=== PATIENT | male | born 1940 | race Caucasian/White ===

== ENCOUNTER 2023-05-03 00:48 | Emergency (ER) | payer MEDICARE, OTHER ==
[~2023-05-03] VITALS: Ht 157.5 cm; Wt 63.5 kg
[~2023-05-03 00:48] MED LIST: BUPR75TA8 PO; CLOP75TA15 PO; DIVA500T54 PO; DUTA0.5C PO; HYDR-4076 PO; ROPI2TAB7 PO; ROSU10TA2 PO; TAMS0.4C34 PO
[2023-05-03 03:51] VITALS: BP 121/63; TEMP 98.2; O2SAT 99
== END 2023-05-03 03:51 | disposition home or self-care (01) ==
LOC: ER 00:52
DX: S80.11XA Contusion of right lower leg, initial encounter (principal); I10 Essential (primary) hypertension; F32.A Depression, unspecified; Z98.890 Other specified postprocedural states; Z79.899 Other long term (current) drug therapy; W22.8XXA Striking against or struck by other objects, initial encounter; Y93.89 Activity, other specified; Y92.89 Other specified places as the place of occurrence of the external cause; Y99.8 Other external cause status

== ENCOUNTER 2024-07-29 13:33 | Inpatient (IN) | payer MEDICARE, OTHER ==
[~2024-07-29] VITALS: Ht 167.6 cm; Wt 64.0 kg
[2024-07-29] MEDS: IV NS 0.9% 1,000 ML BAG IV ONE (15:00)
[2024-07-29 15:03] LABS: BASOPHILS # (AUTO) 0.1 K/uL (0.0-0.2); BASOPHILS % (AUTO) 0.9 % (0.0-2.0); EOSINOPHILS % (AUTO) 0.4 % (0.0-6.0); HEMATOCRIT 42 % (39-51); HEMOGLOBIN 13.9 g/dL (13.5-17.5); LYMPHOCYTES # (AUTO) 1.7 K/uL (0.8-4.8); LYMPHOCYTES % (AUTO) 21.2 % (20.0-44.0); MEAN CORPUSCULAR HEMOGLOBIN 31 PG (26.0-33.0); MEAN CORPUSCULAR HGB CONC 33 g/dl (31.0-36.0); MEAN CORPUSCULAR VOLUME 92 fL (80-96); MONOCYTES # (AUTO) 0.7 K/uL (0.1-1.30); MONOCYTES % (AUTO) 8.8 % (2.0-12.0); NEUTROPHILS # (AUTO) 5.6 K/uL (1.8-8.9); NEUTROPHILS % (AUTO) 68.7 % (43.0-81.0); PLATELET COUNT (AUTO) 217 K/uL (150-450); RED BLOOD CELL COUNT(AUTO) 4.53 MIL/uL (4.5-6.0); RED CELL DISTRIBUTION WIDTH 15.8 % (11.5-15.0); WHITE BLOOD COUNT (AUTO) 8.1 K/uL (4.3-11.0)
[2024-07-29 15:09] LABS: CALCIUM, SERUM 9.2 mg/dL (8.5-10.1); CARBON DIOXIDE 23 mmol/L (21-32); CHLORIDE 103 mmol/L (98-107); CREATININE 3.2 mg/dL (0.6-1.3); GLUCOSE 128 mg/dL (74-106); POTASSIUM 4.4 mmol/L (3.5-5.1); SODIUM SERUM 139 mmol/L (136-145); UREA NITROGEN, BLOOD 58 mg/dL (7-18)
[2024-07-29 15:15] LABS: ALANINE AMINOTRANSFERASE 47 U/L (12-78); ALKALINE PHOSPHATASE 159 U/L (46-116); ASPARTATE AMINOTRANSFERASE 33 U/L (15-37); BILIRUBIN,DIRECT 0.2 mg/dL (0.0-0.2); BILIRUBIN,TOTAL 0.5 mg/dL (0.2-1.0)
[2024-07-29 15:16] LABS: INR 1.09 (0.91-1.10); PROTHROMBIN TIME 11.5 SECS (9.2-11.1)
[2024-07-29 15:41] LABS: THYROID STIMULATING HORMONE 1.99 uIU/mL (0.358-3.74)
[2024-07-29] MEDS ORDERED: ATROPINE SULFATE INJ 1 MG/ML VIAL ONE (16:05)
[2024-07-29] MEDS: ATROPINE SULFATE INJ 1 MG/ML VIAL IV ONE (16:08)
[2024-07-29] MEDS ORDERED: ONDANSETRON HCL/PF 4 MG/2 ML VIAL IVP PRN (18:00)
[2024-07-29] MEDS ORDERED: ATROPINE SULFATE INJ 0.4 MG/ML VIAL IV PRN (18:00)
[2024-07-29] MEDS ORDERED: MAGNESIUM HYDROXIDE 30 ML UDC PO PRN (18:00)
[2024-07-29] MEDS ORDERED: ACETAMINOPHEN 325 MG TABLET PO PRN (18:00)
[2024-07-29] MEDS ORDERED: HYDROCODONE/APAP 5/325MG TABLET PO PRN (18:00)
[2024-07-29] MEDS ORDERED: Z GUARD REMEDY 4 OZ OINT TP PRN (18:00)
[2024-07-29] MEDS ORDERED: ZOLPIDEM TARTRATE 5 MG TABLET PO PRN (18:00)
[2024-07-29] MEDS ORDERED: MAG HYDROX/AL HYDROX/SIMETH 30 ML UDC PO PRN (18:00)
[2024-07-29] MEDS ORDERED: ATROPINE SULFATE INJ 1 MG/ML VIAL IV PRN (20:30)
[2024-07-29 21:23] LABS: APPEARANCE,URINE CLEAR (CLEAR); BILIRUBIN,URINE NEGATIVE (NEGATIVE); BLOOD, URINE NEGATIVE Ery/uL (NEGATIVE); COLOR,URINE YELLOW (YELLOW); KETONES,URINE NEGATIVE (NEGATIVE); LEUKOCYTE ESTERASE ,URINE NEGATIVE (NEGATIVE); NITRITE, URINE NEGATIVE (NEGATIVE); PH,URINE 5.5 (5.0-8.0); PROTEIN,URINE 2+ mg/dl (NEGATIVE); UGLUCOSE NEGATIVE (NEGATIVE)
[2024-07-29 22:16] LABS: ADD URINE CULTURE NO; BACTERIA,URINE Rare /HPF (None Seen); CALCIUM OXALATE CRYSTALS,UR Few /HPF (None Seen); HYALINE CASTS, URINE Few /LPF (None Seen); RBC,URINE 0-2 /HPF (0-2); SQUAMOUS EPITHELIAL CELL,UR Rare /HPF (None Seen); WBC,URINE 0-2 /HPF (0-3)
[2024-07-29] MEDS: IV NS 0.9% 1,000 ML IV PRN (23:48)
[2024-07-30 08:17] LABS: BASOPHILS # (AUTO) 0.1 K/uL (0.0-0.2); BASOPHILS % (AUTO) 0.7 % (0.0-2.0); EOSINOPHILS # (AUTO) 0.1 K/uL (0.0-0.7); EOSINOPHILS % (AUTO) 1.3 % (0.0-6.0); HEMATOCRIT 38 % (39-51); HEMOGLOBIN 12.6 g/dL (13.5-17.5); LYMPHOCYTES # (AUTO) 1.7 K/uL (0.8-4.8); LYMPHOCYTES % (AUTO) 22.9 % (20.0-44.0); MEAN CORPUSCULAR HEMOGLOBIN 31 PG (26.0-33.0); MEAN CORPUSCULAR HGB CONC 33 g/dl (31.0-36.0); MEAN CORPUSCULAR VOLUME 94 fL (80-96); MONOCYTES # (AUTO) 0.7 K/uL (0.1-1.30); MONOCYTES % (AUTO) 9.6 % (2.0-12.0); NEUTROPHILS % (AUTO) 65.5 % (43.0-81.0); PLATELET COUNT (AUTO) 183 K/uL (150-450); RED BLOOD CELL COUNT(AUTO) 4.08 MIL/uL (4.5-6.0); RED CELL DISTRIBUTION WIDTH 16.5 % (11.5-15.0); WHITE BLOOD COUNT (AUTO) 7.6 K/uL (4.3-11.0)
[2024-07-30] MEDS: PANTOPRAZOLE 40 MG TABLET.DR PO SCH (08:34)
[2024-07-30] MEDS: hydrALAZINE HCL 50 MG TABLET PO SCH (08:52)
[2024-07-30 10:10] LABS: CALCIUM, SERUM 8.8 mg/dL (8.5-10.1); CREATININE 2.8 mg/dL (0.6-1.3); MAGNESIUM 2.4 mg/dL (1.8-2.4); PHOSPHORUS 4.8 mg/dL (2.5-4.9); POTASSIUM 4.6 mmol/L (3.5-5.1)
[2024-07-30] MEDS ORDERED: CALC0.253 PO (10:42)
[2024-07-30] MEDS ORDERED: CICLOPIROX TP (10:42)
[2024-07-30] MEDS ORDERED: DAPA5TAB PO (10:42)
[2024-07-30] MEDS ORDERED: FLUT16SP NS (10:42)
[2024-07-30] MEDS ORDERED: GABA100C PO (10:42)
[2024-07-30] MEDS ORDERED: ECON15CR2 TP (10:42)
[2024-07-30] MEDS ORDERED: AMLO1TAB PO (10:42)
[2024-07-30] MEDS ORDERED: TAVA10SO2 TP (10:42)
[2024-07-30] MEDS ORDERED: HYDR100T27 PO ×2 (10:42)
[2024-07-30] MEDS ORDERED: CLON1PAT2 TD (10:42)
[2024-07-30] MEDS ORDERED: CARB1TAB21 PO (10:42)
[2024-07-30] MEDS ORDERED: TEST2.5G10 TP (10:42)
[2024-07-30] MEDS ORDERED: ATEN100T PO (10:42)
[2024-07-30] MEDS ORDERED: TIMO5DRO31 EACHEYE (10:42)
[2024-07-30] MEDS ORDERED: SUCR1TAB PO (10:42)
[2024-07-30] MEDS ORDERED: BUSP5TAB3 PO (10:42)
[2024-07-30] MEDS ORDERED: BUPR200T3 PO (10:42)
[2024-07-30] MEDS ORDERED: TADA5TAB13 PO (10:42)
[2024-07-30] MEDS ORDERED: ASPI-1169 PO (10:42)
[2024-07-30] MEDS ORDERED: MEMA21CA2 PO (10:43)
[2024-07-30] MEDS ORDERED: LOSA25TA27 PO (10:43)
[2024-07-30] MEDS ORDERED: DONE5TAB34 PO (10:43)
[2024-07-30] MEDS ORDERED: DUTA0.5C37 PO (10:43)
[2024-07-30] MEDS ORDERED: MIRT-91 PO (10:43)
[2024-07-30] MEDS ORDERED: AZEL137S7 NS (10:43)
[2024-07-30] MEDS ORDERED: MOME45CR3 TP (10:43)
[2024-07-30] MEDS ORDERED: APIX2.5T PO (10:43)
[2024-07-30] MEDS ORDERED: TAMS-12 PO (10:43)
[2024-07-30] MEDS ORDERED: FURO-145 PO (10:43)
[2024-07-30] MEDS ORDERED: FEBU40TA PO (10:43)
[2024-07-30] MEDS ORDERED: LEVO112T5 PO (10:43)
[2024-07-30] MEDS ORDERED: ESZO1TAB13 PO (10:43)
[2024-07-30] MEDS ORDERED: POLY17PO4 PO (10:43)
[2024-07-30] MEDS ORDERED: CYAN-51 PO (10:43)
[2024-07-30] MEDS ORDERED: FOLI0.4T6 PO (10:43)
[2024-07-30] MEDS ORDERED: FEXO-65 PO (10:43)
[2024-07-30] MEDS ORDERED: ROSU20TA2 PO (10:43)
[2024-07-30] MEDS ORDERED: ESOM40CA52 PO (10:43)
[2024-07-30] MEDS ORDERED: EZET10TA15 PO (10:43)
[2024-07-30] MEDS ORDERED: CALC500T53 PO (10:43)
[2024-07-30] MEDS ORDERED: DICL100G34 TP (10:43)
[2024-07-30] MEDS ORDERED: BIMA2.5D5 EACHEYE (10:43)
[2024-07-30] MEDS ORDERED: SODI650T PO (10:43)
[2024-07-30] MEDS ORDERED: FERR325T23 PO (10:43)
[2024-07-30 20:00] VITALS: BP 161/94; TEMP 98.2; O2SAT 98
[2024-07-31] VITALS: BP 141/65; TEMP 98.1; O2SAT 97
[2024-07-31 04:00] VITALS: BP 149/67; TEMP 98.3; O2SAT 98
[2024-07-31 08:00] VITALS: BP 162/84; TEMP 98.3; O2SAT 98
[2024-07-31 08:25] LABS: BASOPHILS # (AUTO) 0.1 K/uL (0.0-0.2); BASOPHILS % (AUTO) 0.8 % (0.0-2.0); EOSINOPHILS # (AUTO) 0.1 K/uL (0.0-0.7); EOSINOPHILS % (AUTO) 1.3 % (0.0-6.0); HEMATOCRIT 40 % (39-51); HEMOGLOBIN 13.1 g/dL (13.5-17.5); LYMPHOCYTES # (AUTO) 2.1 K/uL (0.8-4.8); LYMPHOCYTES % (AUTO) 23.8 % (20.0-44.0); MEAN CORPUSCULAR HEMOGLOBIN 30 PG (26.0-33.0); MEAN CORPUSCULAR HGB CONC 33 g/dl (31.0-36.0); MEAN CORPUSCULAR VOLUME 93 fL (80-96); MONOCYTES # (AUTO) 0.9 K/uL (0.1-1.30); MONOCYTES % (AUTO) 10.4 % (2.0-12.0); NEUTROPHILS # (AUTO) 5.7 K/uL (1.8-8.9); NEUTROPHILS % (AUTO) 63.7 % (43.0-81.0); PLATELET COUNT (AUTO) 165 K/uL (150-450); WHITE BLOOD COUNT (AUTO) 8.9 K/uL (4.3-11.0)
[2024-07-31] MEDS: hydrALAZINE HCL 50 MG TABLET PO SCH (08:29)
[2024-07-31 12:00] VITALS: BP 171/78; TEMP 97.9; O2SAT 96
[2024-07-31 12:30] LABS: ALBUMIN 3.6 g/dL (3.4-5.0); BILIRUBIN,TOTAL 0.5 mg/dL (0.2-1.0); CALCIUM, SERUM 9.3 mg/dL (8.5-10.1); CREATININE 2.6 mg/dL (0.6-1.3); MAGNESIUM 2.2 mg/dL (1.8-2.4); POTASSIUM 4.2 mmol/L (3.5-5.1); TOTAL PROTEIN, SERUM 6.5 g/dL (6.4-8.2)
[2024-07-31] MEDS: ISOSORBIDE DINITRATE (10MG) 10 MG TABLET PO SCH (13:00)
[2024-07-31 16:00] VITALS: BP 141/70; TEMP 98; O2SAT 96
[2024-07-31 20:00] VITALS: BP 108/67; TEMP 98.6; O2SAT 97
[2024-08-01] VITALS: BP 101/56; TEMP 98.4; O2SAT 95
[2024-08-01 04:00] VITALS: BP 121/57; TEMP 97.8; O2SAT 96
[2024-08-01 07:06] LABS: PTH, INTACT 52 pg/mL (15-65)
[2024-08-01 08:00] VITALS: BP 145/74; TEMP 98.2; O2SAT 96
[2024-08-01 12:00] VITALS: BP 102/54; TEMP 98.1; O2SAT 95
[2024-08-01 16:00] VITALS: BP 115/81; TEMP 98.2; O2SAT 95
[2024-08-01] MEDS: BISACODYL (5 MG) 5 MG TABLET.DR PO ONE (17:56)
[2024-08-01 20:00] VITALS: BP 99/50; TEMP 98.4; O2SAT 96
[2024-08-01] MEDS: BISACODYL (5 MG) 5 MG TABLET.DR PO PRN (21:52)
[2024-08-02] VITALS (8 sets, daily range): BP systolic 100–151; BP diastolic 55–72; TEMP 97.7–98.6; O2SAT 96–98
[2024-08-02 07:43] LABS: BASOPHILS % (AUTO) 0.6 % (0.0-2.0); EOSINOPHILS # (AUTO) 0.1 K/uL (0.0-0.7); EOSINOPHILS % (AUTO) 1.3 % (0.0-6.0); HEMATOCRIT 36 % (39-51); HEMOGLOBIN 11.9 g/dL (13.5-17.5); LYMPHOCYTES % (AUTO) 23.4 % (20.0-44.0); MEAN CORPUSCULAR HEMOGLOBIN 30 PG (26.0-33.0); MEAN CORPUSCULAR HGB CONC 33 g/dl (31.0-36.0); MEAN CORPUSCULAR VOLUME 92 fL (80-96); MONOCYTES % (AUTO) 11.9 % (2.0-12.0); NEUTROPHILS # (AUTO) 5.5 K/uL (1.8-8.9); NEUTROPHILS % (AUTO) 62.8 % (43.0-81.0); PLATELET COUNT (AUTO) 156 K/uL (150-450); RED BLOOD CELL COUNT(AUTO) 3.92 MIL/uL (4.5-6.0); RED CELL DISTRIBUTION WIDTH 16.4 % (11.5-15.0); WHITE BLOOD COUNT (AUTO) 8.7 K/uL (4.3-11.0)
[2024-08-02 07:45] LABS: ALBUMIN 3.3 g/dL (3.4-5.0); BILIRUBIN,TOTAL 0.5 mg/dL (0.2-1.0); CALCIUM, SERUM 8.8 mg/dL (8.5-10.1); CREATININE 3.2 mg/dL (0.6-1.3); MAGNESIUM 2.5 mg/dL (1.8-2.4); PHOSPHORUS 4.3 mg/dL (2.5-4.9); POTASSIUM 4.7 mmol/L (3.5-5.1)
[2024-08-02] MEDS: IV NS 0.9% 1,000 ML IV PRN (08:53)
[2024-08-02] MEDS: NIFEdipine XL (30MG) 30 MG TAB PO SCH (12:37)
[2024-08-02] MEDS: LACTULOSE 10 G/15 ML UDC (PYXIS) PO SCH (12:53)
[2024-08-03] VITALS: BP 111/63; TEMP 98.4; O2SAT 97
[2024-08-03 04:00] VITALS: BP 145/73; TEMP 98.2; O2SAT 97
[2024-08-03 07:31] LABS: BASOPHILS # (AUTO) 0.1 K/uL (0.0-0.2); BASOPHILS % (AUTO) 0.7 % (0.0-2.0); EOSINOPHILS # (AUTO) 0.1 K/uL (0.0-0.7); EOSINOPHILS % (AUTO) 1.2 % (0.0-6.0); HEMATOCRIT 36 % (39-51); HEMOGLOBIN 11.8 g/dL (13.5-17.5); LYMPHOCYTES # (AUTO) 1.8 K/uL (0.8-4.8); LYMPHOCYTES % (AUTO) 23.3 % (20.0-44.0); MEAN CORPUSCULAR HEMOGLOBIN 31 PG (26.0-33.0); MEAN CORPUSCULAR HGB CONC 33 g/dl (31.0-36.0); MEAN CORPUSCULAR VOLUME 94 fL (80-96); MONOCYTES % (AUTO) 12.9 % (2.0-12.0); NEUTROPHILS # (AUTO) 4.8 K/uL (1.8-8.9); NEUTROPHILS % (AUTO) 61.9 % (43.0-81.0); PLATELET COUNT (AUTO) 150 K/uL (150-450); RED BLOOD CELL COUNT(AUTO) 3.83 MIL/uL (4.5-6.0); RED CELL DISTRIBUTION WIDTH 16.2 % (11.5-15.0); WHITE BLOOD COUNT (AUTO) 7.8 K/uL (4.3-11.0)
[2024-08-03 08:00] VITALS: BP 158/77; TEMP 98; O2SAT 97
[2024-08-03 08:30] LABS: ALBUMIN 3.3 g/dL (3.4-5.0); BILIRUBIN,TOTAL 0.5 mg/dL (0.2-1.0); CALCIUM, SERUM 9.3 mg/dL (8.5-10.1); CREATININE 2.8 mg/dL (0.6-1.3); MAGNESIUM 2.3 mg/dL (1.8-2.4); PHOSPHORUS 3.9 mg/dL (2.5-4.9); POTASSIUM 4.6 mmol/L (3.5-5.1); TOTAL PROTEIN, SERUM 6.1 g/dL (6.4-8.2)
[2024-08-03 12:00] VITALS: BP 132/68; TEMP 98.1
[2024-08-03 13:06] LABS: *SPE A/G RATIO 1.1 (0.7-1.7); *SPE ALBUMIN 3.2 g/dL (2.9-4.4); *SPE ALPHA-1-GLOBULIN 0.3 g/dL (0.0-0.4); *SPE ALPHA-2-GLOBULIN 0.8 g/dL (0.4-1.0); *SPE BETA GLOBULIN 0.9 g/dL (0.7-1.3); *SPE GLOBULIN, TOTAL 2.8 g/dL (2.2-3.9); *SPE M-SPIKE Not Observed g/dL (Not Observed); *SPEGAMMA GLOBULIN 0.8 g/dL (0.4-1.8)
[2024-08-03] MEDS ORDERED: NA PHOS,M-B/NA PHOS,DI-BA 1 EA ENEMA RC PRN (14:00)
[2024-08-03] MEDS: NA PHOS,M-B/NA PHOS,DI-BA 1 EA ENEMA RC PRN (14:40)
[2024-08-03 16:00] VITALS: BP 130/64; TEMP 98.3; O2SAT 97
[2024-08-03 20:00] VITALS: BP 149/76; TEMP 98.2; O2SAT 97
[2024-08-04] VITALS: BP 151/65; TEMP 98.2; O2SAT 96
[2024-08-04 04:00] VITALS: BP 129/55; TEMP 98.3; O2SAT 98
[2024-08-04 07:07] LABS: BASOPHILS % (AUTO) 0.6 % (0.0-2.0); EOSINOPHILS % (AUTO) 0.6 % (0.0-6.0); HEMATOCRIT 33 % (39-51); HEMOGLOBIN 10.9 g/dL (13.5-17.5); LYMPHOCYTES # (AUTO) 1.6 K/uL (0.8-4.8); LYMPHOCYTES % (AUTO) 21.7 % (20.0-44.0); MEAN CORPUSCULAR HEMOGLOBIN 31 PG (26.0-33.0); MEAN CORPUSCULAR HGB CONC 33 g/dl (31.0-36.0); MEAN CORPUSCULAR VOLUME 93 fL (80-96); MONOCYTES # (AUTO) 0.8 K/uL (0.1-1.30); MONOCYTES % (AUTO) 11.1 % (2.0-12.0); NEUTROPHILS # (AUTO) 4.9 K/uL (1.8-8.9); PLATELET COUNT (AUTO) 153 K/uL (150-450); RED BLOOD CELL COUNT(AUTO) 3.57 MIL/uL (4.5-6.0); RED CELL DISTRIBUTION WIDTH 16.1 % (11.5-15.0); WHITE BLOOD COUNT (AUTO) 7.5 K/uL (4.3-11.0)
[2024-08-04 07:54] LABS: BILIRUBIN,TOTAL 0.6 mg/dL (0.2-1.0); CALCIUM, SERUM 8.5 mg/dL (8.5-10.1); CREATININE 2.3 mg/dL (0.6-1.3); MAGNESIUM 2.3 mg/dL (1.8-2.4); PHOSPHORUS 3.6 mg/dL (2.5-4.9); POTASSIUM 4.5 mmol/L (3.5-5.1); TOTAL PROTEIN, SERUM 5.8 g/dL (6.4-8.2)
[2024-08-04 08:00] VITALS: BP 134/64; TEMP 98.4; O2SAT 95
[2024-08-04] MEDS: NIFEdipine XL (30MG) 30 MG TAB PO SCH (08:10)
[2024-08-04 12:00] VITALS: BP 105/54; TEMP 98.7; O2SAT 94
[2024-08-04 16:00] VITALS: BP 159/76; TEMP 98.4; O2SAT 96
[2024-08-04 20:00] VITALS: BP 90/42; TEMP 98.2; O2SAT 97
[2024-08-05] VITALS: BP 103/58; TEMP 98.2; O2SAT 96
[2024-08-05 04:00] VITALS: BP 108/57; TEMP 98.1; O2SAT 96
[2024-08-05 08:00] VITALS: BP 130/68; TEMP 97.8; O2SAT 96
[2024-08-05 12:00] VITALS: BP 123/76; TEMP 97.6; O2SAT 96
[2024-08-05] MEDS ORDERED: PANT40TA2 PO (12:56)
[2024-08-05] MEDS ORDERED: DOCU-141 PO (12:56)
[2024-08-05] MEDS ORDERED: ISOS40TA12 PO (12:56)
[2024-08-05] MEDS ORDERED: NIFE90TA2 PO (12:56)
[2024-08-05] MEDS ORDERED: HYDR100T27 PO (12:56)
[2024-08-05] MEDS ORDERED: ULORIC 40 MG XX SCH (13:00)
[2024-08-05] MEDS: MINERAL OIL 133 ML (PYXIS) 1 EA ENEMA RC ONE (13:27)
[2024-08-05] MEDS: LEVOTHYROXINE SODIUM 112 MCG TABLET PO SCH (13:27)
[2024-08-05 17:00] VITALS: BP 148/73; TEMP 98.3; O2SAT 96
[2024-08-05] MEDS ORDERED: MOMETASONE FUROATE 0.1% CREAM 15 GM TUBE TP PRN (17:00)
[2024-08-05 17:22] VITALS: BP 111/52
[2024-08-05] MEDS: APIXABAN 2.5 MG TABLET PO SCH (17:22)
[2024-08-05] MEDS: FERROUS SULFATE (325 MG) 325 MG/TAB TABLET PO SCH (17:22)
[2024-08-05] MEDS: SODIUM BICARBONATE 650 MG TABLET PO SCH (17:22)
[2024-08-05] MEDS: SUCRALFATE 1 G TABLET PO SCH (17:22)
[2024-08-05] MEDS: MEMANTINE HCL 5 MG TABLET PO SCH (17:23)
[2024-08-05] MEDS: CARBIDOPA/LEVODOPA 25/100 MG 1 UDTAB PO SCH (17:23)
[2024-08-05] MEDS ORDERED: BIMATOPROST 2.5 ML DROPS OP SCH (18:00)
[2024-08-05] MEDS: ECONAZOLE NITRATE CREAM 15 GM TUBE TP SCH (18:02)
[2024-08-05] MEDS: DICLOFENAC TOPICAL 100 GM TUBE TP SCH (18:02)
[2024-08-05] MEDS: TIMOLOL 0.5% SOLN OPHTH 5 ML BOTTLE EACHEYE SCH (18:02)
[2024-08-05] MEDS ORDERED: DONEPEZIL 5 MG TABLET PO SCH (22:00)
[2024-08-05] MEDS ORDERED: MIRTAZAPINE 15 MG TABLET PO SCH (22:00)
[2024-08-05] MEDS ORDERED: TAMSULOSIN 0.4 MG CAP.SR.24H PO SCH (22:00)
[2024-08-05] MEDS ORDERED: DUTASTERIDE (0.5 MG) 0.5 MG CAPSULE PO SCH (22:00)
[2024-08-06] MEDS ORDERED: ASPIRIN 81 MG TAB.CHEW PO SCH (09:00)
[2024-08-06] MEDS ORDERED: POLYETHYLENE GLYCOL 3350 17 GM POWD.PACK PO SCH (09:00)
[2024-08-06] MEDS ORDERED: busPIRone 5 MG TABLET PO SCH (09:00)
[2024-08-06] MEDS ORDERED: AZELASTINE NASAL SPRAY 30 ML BOTTLE NS SCH (09:00)
[2024-08-06] MEDS ORDERED: CALCIUM CARBONATE (1250) 500 MG TABLET PO SCH (09:00)
[2024-08-06] MEDS ORDERED: CALCITRIOL 0.25 MCG CAPSULE PO SCH (09:00)
[2024-08-06] MEDS ORDERED: FLUTICASONE PROPIONATE 16 GM BOTTLE NS SCH (09:00)
[2024-08-06] MEDS ORDERED: DAPAGLIFLOZIN PROPANEDIOL 5 MG TABLET PO SCH (09:00)
[2024-08-06] MEDS ORDERED: cetrizine 10 MG TABLET PO SCH (09:00)
[2024-08-06] MEDS ORDERED: buPROPion SR 100 MG TABLET.ER PO SCH (09:00)
[2024-08-06] MEDS ORDERED: FOLIC ACID 1 MG TABLET PO SCH (09:00)
[2024-08-06] MEDS ORDERED: CYANOCOBALAMIN 500 MCG TABLET PO SCH (09:00)
[2024-08-06] MEDS ORDERED: ATORVASTATIN 40 MG TABLET PO SCH (09:00)
[2024-08-06] MEDS ORDERED: EZETIMIBE 10 MG TABLET PO SCH (09:00)
== END 2024-08-05 22:21 | disposition home health service (06) | DRG 309 ==
LOC: ER 14:06 → TELE1 20:10 → MEDSG1 08-05 08:55
PROVIDERS: ATTEND Nurse Practitioner Acute Care
DX: I49.5 Sick sinus syndrome (principal); N17.9 Acute kidney failure, unspecified; F32.A Depression, unspecified; I12.9 Hypertensive chronic kidney disease with stage 1 through stage 4 chronic kidney disease, or unspecified chronic kidney disease; N18.9 Chronic kidney disease, unspecified; Z85.528 Personal history of other malignant neoplasm of kidney; Z90.5 Acquired absence of kidney; Z79.02 Long term (current) use of antithrombotics/antiplatelets; Z79.899 Other long term (current) drug therapy; M89.8X9 Other specified disorders of bone, unspecified site; D64.9 Anemia, unspecified; E03.9 Hypothyroidism, unspecified; K59.00 Constipation, unspecified; Z79.01 Long term (current) use of anticoagulants; Z79.890 Hormone replacement therapy; Z79.82 Long term (current) use of aspirin; Z79.51 Long term (current) use of inhaled steroids
CPT/HCPCS: 36415; 71045-TC; 76770-TC; 80048-TC; 80053-TC; 80076-TC; 80162-TC; 81001; 82550-TC; 83735-TC; 83880; 83970; 84100-TC; 84155; 84165; 84443-TC; 84484-TC; 85025-TC; 85730-TC; 93307-TC; 97110-TC; 97116-TC; 97530-TC; A4223; G0378; J0461; J7030

== ENCOUNTER 2025-01-03 20:36 | Inpatient (IN) | payer MEDICARE, OTHER ==
[~2025-01-03] VITALS: Ht 167.6 cm; Wt 58.1 kg
[~2025-01-03 20:36] MED LIST changes: +AMLO1TAB PO; +APIX2.5T PO; +ASPI-1169 PO; +ATEN100T PO; +AZEL137S7 NS; +BIMA2.5D5 EACHEYE; +BUPR200T3 PO; -BUPR75TA8 PO; +BUSP5TAB3 PO; +CALC0.253 PO; +CALC500T53 PO; +CARB1TAB21 PO; +CICLOPIROX TP; +CLON1PAT2 TD; -CLOP75TA15 PO; +CYAN-51 PO; +DAPA5TAB PO; +DICL100G34 TP; -DIVA500T54 PO; +DOCU-141 PO; +DONE5TAB34 PO; -DUTA0.5C PO; +DUTA0.5C37 PO; +ECON15CR2 TP; +ESOM40CA52 PO; +ESZO1TAB13 PO; +EZET10TA15 PO; +FEBU40TA PO; +FERR325T23 PO; +FEXO-65 PO; +FLUT16SP NS; +FOLI0.4T6 PO; +FURO-145 PO; +GABA100C PO; -HYDR-4076 PO; +HYDR100T27 PO; +ISOS40TA12 PO; +LEVO112T5 PO; +LOSA25TA27 PO; +MEMA21CA2 PO; +MIRT-91 PO; +MOME45CR3 TP; +NIFE90TA2 PO; +PANT40TA2 PO; +POLY17PO4 PO; -ROPI2TAB7 PO; -ROSU10TA2 PO; +ROSU20TA2 PO; +SODI650T PO; +SUCR1TAB PO; +TADA5TAB13 PO; +TAMS-12 PO; -TAMS0.4C34 PO; +TAVA10SO2 TP; +TEST2.5G10 TP; +TIMO5DRO31 EACHEYE
[2025-01-03 21:04] LABS: PLATELET COUNT (AUTO) 152 K/uL (150-450); RED BLOOD CELL COUNT(AUTO) 4.58 MIL/uL (4.5-6.0); RED CELL DISTRIBUTION WIDTH 19.3 % (11.5-15.0); WHITE BLOOD COUNT (AUTO) 6.9 K/uL (4.3-11.0)
[2025-01-03 21:13] LABS: CALCIUM, SERUM 9.6 mg/dL (8.5-10.1); CREATININE 3.2 mg/dL (0.6-1.3); SODIUM SERUM 135 mmol/L (136-145); UREA NITROGEN, BLOOD 79 mg/dL (7-18)
[2025-01-03] MEDS ORDERED: MAG HYDROX/AL HYDROX/SIMETH 30 ML UDC PO PRN (22:00)
[2025-01-03] MEDS ORDERED: ZOLPIDEM TARTRATE 5 MG TABLET PO PRN (22:00)
[2025-01-03] MEDS ORDERED: ONDANSETRON HCL/PF 4 MG/2 ML VIAL IVP PRN (22:00)
[2025-01-03 22:20] VITALS: BP_SYST 135; BP_SYST 145; BP_SYST 80; BP_DIAS 46; BP_DIAS 66; BP_DIAS 68; TEMP 98.1; O2SAT 98
[2025-01-03] MEDS ORDERED: IV NS 0.9% 1,000 ML BAG IV PRN (23:30)
[2025-01-04] MEDS: IV NS 0.9% 1,000 ML BAG IV SCH (02:06)
[2025-01-04 07:06] LABS: PLATELET COUNT (AUTO) 135 K/uL (150-450); RED BLOOD CELL COUNT(AUTO) 4.29 MIL/uL (4.5-6.0); RED CELL DISTRIBUTION WIDTH 18.9 % (11.5-15.0); WHITE BLOOD COUNT (AUTO) 6.5 K/uL (4.3-11.0)
[2025-01-04 07:24] LABS: CALCIUM, SERUM 9.4 mg/dL (8.5-10.1); CREATININE 2.9 mg/dL (0.6-1.3); PHOSPHORUS 5.3 mg/dL (2.5-4.9); SODIUM SERUM 139.0 mmol/L (136-145); UREA NITROGEN, BLOOD 75.0 mg/dL (7-18)
[2025-01-04] MEDS: PANTOPRAZOLE 40 MG TABLET.DR PO SCH (08:08)
[2025-01-04] MEDS ORDERED: LEVO100T9 PO (11:56)
[2025-01-04] MEDS ORDERED: MIRT-90 PO (11:57)
[2025-01-04 20:00] VITALS: BP 146/74; TEMP 98.1; O2SAT 98
[2025-01-05] VITALS: BP 175/95; TEMP 98; O2SAT 97
[2025-01-05 04:00] VITALS: BP 150/81; TEMP 97.9; O2SAT 96
[2025-01-05 05:08] LABS: FOLIC ACID > 20.0 ng/mL (>3.0)
[2025-01-05 07:04] LABS: PLATELET COUNT (AUTO) 151 K/uL (150-450); RED BLOOD CELL COUNT(AUTO) 4.60 MIL/uL (4.5-6.0); RED CELL DISTRIBUTION WIDTH 19.2 % (11.5-15.0); WHITE BLOOD COUNT (AUTO) 7.5 K/uL (4.3-11.0)
[2025-01-05 07:07] LABS: ASPARTATE AMINOTRANSFERASE 15.0 U/L (15-37); CALCIUM, SERUM 9.4 mg/dL (8.5-10.1); CREATININE 2.1 mg/dL (0.6-1.3); PHOSPHORUS 3.7 mg/dL (2.5-4.9); SODIUM SERUM 140.0 mmol/L (136-145); TOTAL PROTEIN, SERUM 6.5 g/dL (6.4-8.2); UREA NITROGEN, BLOOD 66.0 mg/dL (7-18)
[2025-01-05 07:20] LABS: CREATINE KINASE, TOTAL 44.0 U/L (39-308)
[2025-01-05 08:00] VITALS: BP 108/87; TEMP 97.9; O2SAT 96
[2025-01-05 12:00] VITALS: BP 145/98; TEMP 98.1; O2SAT 99
[2025-01-05] MEDS ORDERED: HYDR-4076 PO (12:49)
[2025-01-05 16:00] VITALS: BP 150/88; TEMP 98.2; O2SAT 97
[2025-01-05 20:00] VITALS: BP 132/63; TEMP 98.4; O2SAT 95
[2025-01-06 00:11] VITALS: BP 155/100; TEMP 98.4; O2SAT 97
[2025-01-06] MEDS ORDERED: IV NS 0.9% 1,000 ML BAG IV SCH (01:30)
[2025-01-06] MEDS: IV NS 0.9% 1,000 ML IV PRN (03:55)
[2025-01-06 04:35] VITALS: BP_SYST 132; BP_SYST 157; BP_SYST 96; BP_DIAS 56; BP_DIAS 72; BP_DIAS 76; TEMP 98.7; O2SAT 94
[2025-01-06 08:00] VITALS: BP_SYST 161; BP_SYST 99; BP_DIAS 37; BP_DIAS 84; TEMP 97.9; TEMP 98.6; O2SAT 94; O2SAT 96
[2025-01-06 08:00] LABS: PLATELET COUNT (AUTO) 145 K/uL (150-450); RED BLOOD CELL COUNT(AUTO) 4.66 MIL/uL (4.5-6.0); RED CELL DISTRIBUTION WIDTH 19.5 % (11.5-15.0); WHITE BLOOD COUNT (AUTO) 6.8 K/uL (4.3-11.0)
[2025-01-06 08:26] LABS: ASPARTATE AMINOTRANSFERASE 16.0 U/L (15-37); CALCIUM, SERUM 9.5 mg/dL (8.5-10.1); CREATININE 2.2 mg/dL (0.6-1.3); PHOSPHORUS 3.5 mg/dL (2.5-4.9); SODIUM SERUM 142.0 mmol/L (136-145); TOTAL PROTEIN, SERUM 6.6 g/dL (6.4-8.2); UREA NITROGEN, BLOOD 59.0 mg/dL (7-18)
[2025-01-06 09:07] LABS: PTH, INTACT 62 pg/mL (15-65)
[2025-01-06 12:00] VITALS: BP 160/84; TEMP 97.9; O2SAT 96
[2025-01-06] MEDS: ACETAMINOPHEN 325 MG TABLET PO PRN (17:04)
[2025-01-06 17:30] VITALS: BP_SYST 149; BP_SYST 177; BP_SYST 197; BP_DIAS 76; BP_DIAS 77; BP_DIAS 99
[2025-01-06] MEDS: IV NS 0.9% 1,000 ML IV SCH (17:30)
[2025-01-06] MEDS: ASPIRIN 81 MG TAB.CHEW PO SCH (17:54)
[2025-01-06] MEDS: APIXABAN 2.5 MG TABLET PO SCH (17:55)
[2025-01-06] MEDS ORDERED: ZOLPIDEM TARTRATE 5 MG TABLET PO PRN (18:00)
[2025-01-06 20:00] VITALS: BP_SYST 108; BP_SYST 133; BP_DIAS 57; BP_DIAS 75; TEMP 98.2; O2SAT 96
[2025-01-06] MEDS: DONEPEZIL 5 MG TABLET PO SCH (21:34)
[2025-01-06] MEDS: LATANOPROST EYE DROP 0.005% 2.5 ML BOTTLE OP SCH (21:34)
[2025-01-06] MEDS: TAMSULOSIN 0.4 MG CAP.SR.24H PO SCH (21:34)
[2025-01-06] MEDS: DUTASTERIDE (0.5 MG) 0.5 MG CAPSULE PO SCH (21:34)
[2025-01-06] MEDS: MIRTAZAPINE 15 MG TABLET PO SCH (21:34)
[2025-01-07] VITALS (7 sets, daily range): BP systolic 93–169; BP diastolic 54–77; TEMP 97.5–98.4; O2SAT 97–100
[2025-01-07 06:48] LABS: PLATELET COUNT (AUTO) 134 K/uL (150-450); RED BLOOD CELL COUNT(AUTO) 4.47 MIL/uL (4.5-6.0); RED CELL DISTRIBUTION WIDTH 19.3 % (11.5-15.0); WHITE BLOOD COUNT (AUTO) 5.3 K/uL (4.3-11.0)
[2025-01-07 07:07] LABS: METHYLMALONIC ACID 2124 nmol/L (0-378)
[2025-01-07 07:16] LABS: ASPARTATE AMINOTRANSFERASE 13.0 U/L (15-37); CALCIUM, SERUM 8.9 mg/dL (8.5-10.1); CREATININE 2.1 mg/dL (0.6-1.3); PHOSPHORUS 3.4 mg/dL (2.5-4.9); SODIUM SERUM 142.0 mmol/L (136-145); TOTAL PROTEIN, SERUM 6.1 g/dL (6.4-8.2); UREA NITROGEN, BLOOD 56.0 mg/dL (7-18)
[2025-01-07] MEDS: GABAPENTIN 100 MG CAPSULE PO SCH (08:32)
[2025-01-07] MEDS: POLYETHYLENE GLYCOL 3350 17 GM POWD.PACK PO SCH (08:32)
[2025-01-07] MEDS: LEVOTHYROXINE SODIUM 100 MCG TABLET PO SCH (08:33)
[2025-01-07] MEDS: SUCRALFATE 1 G TABLET PO SCH (08:33)
[2025-01-07] MEDS: CYANOCOBALAMIN 500 MCG TABLET PO SCH (08:33)
[2025-01-07] MEDS: CARBIDOPA/LEVODOPA 25/100 MG 1 UDTAB PO SCH (08:33)
[2025-01-07] MEDS: FOLIC ACID 1 MG TABLET PO SCH (08:33)
[2025-01-07] MEDS: ATORVASTATIN 40 MG TABLET PO SCH (08:34)
[2025-01-07] MEDS: cetrizine 10 MG TABLET PO SCH (08:34)
[2025-01-07] MEDS: MEMANTINE HCL 5 MG TABLET PO SCH ×2 (08:35→17:00)
[2025-01-07] MEDS: CALCITRIOL 0.25 MCG CAPSULE PO SCH (08:36)
[2025-01-07] MEDS: EZETIMIBE 10 MG TABLET PO SCH (08:36)
[2025-01-07] MEDS: FLUTICASONE PROPIONATE 16 GM BOTTLE NS SCH (08:55)
[2025-01-07] MEDS: TIMOLOL 0.5% SOLN OPHTH 5 ML BOTTLE EACHEYE SCH (08:55)
[2025-01-07] MEDS: buPROPion SR 100 MG TABLET.ER PO SCH (08:55)
[2025-01-07] MEDS ORDERED: ASPIRIN 81 MG TAB.CHEW PO SCH (09:00)
[2025-01-07] MEDS ORDERED: Medication Not On Formulary EA (Tadalafil 5 MG) PO SCH (09:00)
[2025-01-07] MEDS ORDERED: APIXABAN 2.5 MG TABLET PO SCH (09:00)
[2025-01-07] MEDS ORDERED: Medication Not On Formulary EA (Esomeprazole Magnesium 40 MG) PO SCH (09:00)
[2025-01-07 16:07] LABS: *SPE A/G RATIO 1.4 (0.7-1.7); *SPE ALBUMIN 3.5 g/dL (2.9-4.4); *SPE ALPHA-1-GLOBULIN 0.2 g/dL (0.0-0.4); *SPE ALPHA-2-GLOBULIN 0.7 g/dL (0.4-1.0); *SPE BETA GLOBULIN 0.8 g/dL (0.7-1.3); *SPE GLOBULIN, TOTAL 2.5 g/dL (2.2-3.9); *SPE M-SPIKE Not Observed g/dL (Not Observed); *SPE PROTEIN TOTAL 6.0 g/dL (6.0-8.5); *SPEGAMMA GLOBULIN 0.8 g/dL (0.4-1.8)
[2025-01-07] MEDS: IV NS 0.9% 1,000 ML IV PRN (17:21)
[2025-01-08] VITALS: BP 181/108; TEMP 98.4; O2SAT 97
[2025-01-08 04:00] VITALS: BP 148/85; TEMP 98.4; O2SAT 97
[2025-01-08 08:00] VITALS: BP 164/73; TEMP 98.2; O2SAT 98
[2025-01-08 12:00] VITALS: BP 114/62; TEMP 97.9; O2SAT 98
[2025-01-08 16:00] VITALS: BP 128/85; TEMP 98.2; O2SAT 98
[2025-01-08 17:20] LABS: CALCIUM, SERUM 9.0 mg/dL (8.5-10.1); CREATININE 2.0 mg/dL (0.6-1.3); SODIUM SERUM 141.0 mmol/L (136-145); UREA NITROGEN, BLOOD 55.0 mg/dL (7-18)
[2025-01-08 20:00] VITALS: BP 114/55; TEMP 98.2; O2SAT 96
[2025-01-08 22:06] LABS: VITAMIN B1 THIAMINE,WB 113.1 nmol/L (66.5-200.0)
[2025-01-09] VITALS (9 sets, daily range): BP systolic 74–170; BP diastolic 36–90; TEMP 97.2–98.4; O2SAT 96–98
[2025-01-09 08:34] LABS: CALCIUM, SERUM 8.9 mg/dL (8.5-10.1); CREATININE 2.0 mg/dL (0.6-1.3); SODIUM SERUM 143.0 mmol/L (136-145); UREA NITROGEN, BLOOD 50.0 mg/dL (7-18)
[2025-01-09] MEDS: Z GUARD REMEDY 4 OZ OINT TP PRN (12:35)
[2025-01-10] VITALS (8 sets, daily range): BP systolic 80–157; BP diastolic 45–89; TEMP 97.5–98.6; O2SAT 95–97
[2025-01-10 08:55] LABS: CALCIUM, SERUM 9.5 mg/dL (8.5-10.1); CREATININE 2.2 mg/dL (0.6-1.3); SODIUM SERUM 141.0 mmol/L (136-145); UREA NITROGEN, BLOOD 48.0 mg/dL (7-18)
[2025-01-11] VITALS (12 sets, daily range): BP systolic 48–171; BP diastolic 38–91; TEMP 97.5–98.4; O2SAT 96–97
[2025-01-11 07:23] LABS: ASPARTATE AMINOTRANSFERASE 18.0 U/L (15-37); CALCIUM, SERUM 9.1 mg/dL (8.5-10.1); CREATININE 1.9 mg/dL (0.6-1.3); SODIUM SERUM 143.0 mmol/L (136-145); TOTAL PROTEIN, SERUM 5.7 g/dL (6.4-8.2); UREA NITROGEN, BLOOD 50.0 mg/dL (7-18)
[2025-01-11] MEDS: FLUDROCORTISONE 0.1 MG TABLET PO SCH (11:22)
[2025-01-12] VITALS (9 sets, daily range): BP systolic 84–165; BP diastolic 52–99; TEMP 97.5–98.2; O2SAT 95–98
[2025-01-12] MEDS: CLOTRIMAZOLE 1% 15 GM TUBE TP SCH (10:28)
[2025-01-13] VITALS (12 sets, daily range): BP systolic 72–166; BP diastolic 32–91; TEMP 97.8–98.4; O2SAT 96–97
[2025-01-13] MEDS: IV NS 0.9% 500 ML IV ONE (14:39)
[2025-01-13] MEDS: MAGNESIUM HYDROXIDE 30 ML UDC PO PRN (18:11)
[2025-01-14] VITALS (7 sets, daily range): BP systolic 136–188; BP diastolic 60–96; TEMP 98.1–98.4; O2SAT 96–97
[2025-01-14 06:28] LABS: PLATELET COUNT (AUTO) 150 K/uL (150-450); RED BLOOD CELL COUNT(AUTO) 3.96 MIL/uL (4.5-6.0); RED CELL DISTRIBUTION WIDTH 20.1 % (11.5-15.0); WHITE BLOOD COUNT (AUTO) 5.5 K/uL (4.3-11.0)
[2025-01-14 06:50] LABS: ASPARTATE AMINOTRANSFERASE 27.0 U/L (15-37); CALCIUM, SERUM 8.7 mg/dL (8.5-10.1); CREATININE 1.6 mg/dL (0.6-1.3); PHOSPHORUS 2.4 mg/dL (2.5-4.9); SODIUM SERUM 144.0 mmol/L (136-145); TOTAL PROTEIN, SERUM 5.8 g/dL (6.4-8.2); UREA NITROGEN, BLOOD 34.0 mg/dL (7-18)
[2025-01-14] MEDS ORDERED: FLUD0.1T3 PO (08:27)
[2025-01-15] VITALS (12 sets, daily range): BP systolic 49–183; BP diastolic 49–99; TEMP 97.7–98.4; O2SAT 95–97
[2025-01-15] MEDS ORDERED: DROX100C PO (11:00)
[2025-01-15 11:47] LABS: PLATELET COUNT (AUTO) 156 K/uL (150-450); RED BLOOD CELL COUNT(AUTO) 3.94 MIL/uL (4.5-6.0); RED CELL DISTRIBUTION WIDTH 19.7 % (11.5-15.0); WHITE BLOOD COUNT (AUTO) 6.1 K/uL (4.3-11.0)
[2025-01-15 11:57] LABS: CALCIUM, SERUM 9.3 mg/dL (8.5-10.1); CREATININE 1.9 mg/dL (0.6-1.3); SODIUM SERUM 143.0 mmol/L (136-145); UREA NITROGEN, BLOOD 39.0 mg/dL (7-18)
[2025-01-15] MEDS: MIDODRINE HCL (5MG) 5 MG TABLET PO PRN (13:48)
[2025-01-16] VITALS (10 sets, daily range): BP systolic 127–189; BP diastolic 63–96; TEMP 97.2–98.1; O2SAT 97–100
[2025-01-17] VITALS (10 sets, daily range): BP systolic 106–168; BP diastolic 55–97; TEMP 97.3–97.9; O2SAT 98–99
[2025-01-18] VITALS: BP 151/64; TEMP 97.9; O2SAT 98
[2025-01-18 04:00] VITALS: BP 157/72; TEMP 97.9; O2SAT 97
[2025-01-18 08:05] VITALS: BP 170/94; TEMP 98.2; O2SAT 97
[2025-01-18 08:10] VITALS: BP 116/68
[2025-01-18] MEDS ORDERED: MIDO2.5T PO (08:58)
[2025-01-18 10:13] LABS: CALCIUM, SERUM 9.1 mg/dL (8.5-10.1); CREATININE 1.7 mg/dL (0.6-1.3); SODIUM SERUM 142.0 mmol/L (136-145); UREA NITROGEN, BLOOD 40.0 mg/dL (7-18)
[2025-01-18 12:00] VITALS: BP 139/62; TEMP 98.2; O2SAT 97
[2025-01-18 12:05] VITALS: BP 148/46
== END 2025-01-18 13:33 | disposition home or self-care (01) | DRG 640 ==
LOC: ER 20:37 → TELE1 21:40
PROVIDERS: ADMIT Student in an Organized Health Care Education/Training Program; ATTEND Internal Medicine
DX: E86.9 Volume depletion, unspecified (principal); N17.0 Acute kidney failure with tubular necrosis; N18.4 Chronic kidney disease, stage 4 (severe); I95.1 Orthostatic hypotension; E87.1 Hypo-osmolality and hyponatremia; E86.0 Dehydration; R00.1 Bradycardia, unspecified; F32.A Depression, unspecified; I12.9 Hypertensive chronic kidney disease with stage 1 through stage 4 chronic kidney disease, or unspecified chronic kidney disease; Y92.9 Unspecified place or not applicable; Z85.528 Personal history of other malignant neoplasm of kidney; Z79.899 Other long term (current) drug therapy; Z90.5 Acquired absence of kidney; Z79.84 Long term (current) use of oral hypoglycemic drugs; Z79.82 Long term (current) use of aspirin; Z79.01 Long term (current) use of anticoagulants; E11.22 Type 2 diabetes mellitus with diabetic chronic kidney disease; Z79.890 Hormone replacement therapy; D64.9 Anemia, unspecified; E03.9 Hypothyroidism, unspecified; E83.39 Other disorders of phosphorus metabolism; G20.C Parkinsonism, unspecified; G90.9 Disorder of the autonomic nervous system, unspecified; T50.995A Adverse effect of other drugs, medicaments and biological substances, initial encounter; Z86.79 Personal history of other diseases of the circulatory system; M89.8X9 Other specified disorders of bone, unspecified site
CPT/HCPCS: 36415; 70450-TC; 71045-TC; 76770-TC; 80048-TC; 80053-TC; 82550-TC; 82607-TC; 82962-TC; 83735-TC; 83880; 83921; 83970; 84100-TC; 84155; 84165; 84425; 84443-TC; 84484-TC; 85025-TC; 87081-TC; 93307-TC; 97110-TC; 97116-TC; 97530-TC; A4223; G0378; J7030; J7040